=== PATIENT | female | born 1985 | race Caucasian/White ===

== ENCOUNTER → 2018-09-07 | Outpatient (CLI) | payer OTHER ==
[~2018-09-07] MED LIST: GADOBUTROL 7.5 MMOL/7.5 ML VIAL INT ART ONE; IOHEXOL 300 MG/ML 50 ML VIAL. INT ART ONE; LIDOCAINE 1% Multi-Dose 20 ML VIAL. ID ONE
--- NOTE | 2018-09-08 08:46 | KCIC ---
EXAM: MR right elbow arthrogram INDICATION: Lateral epicondylitis, radial tunnel syndrome. TECHNIQUE: Fluoroscopic guided arthrogram was performed prior to MRI. A mixture of dilute gadolinium with local anesthetic was injected. Please see corresponding report for further details. Multiplanar, multisequence imaging of the elbow was performed. FINDINGS: Ligaments: Ulnar collateral ligament: The anterior band of the ulnar collateral ligament is intact. Radial collateral ligament: Increased signal identified in the radial collateral ligament probably due to the radial collateral ligament. Lateral ulnar collateral ligament: Intact. Other ligaments and capsule: Intact. Muscles: Flexor and extensor origins are intact. There is probable mild increased T2 signal identified in the lateral epicondyle region. No signal abnormality in the muscles. Cartilage: No osteochondral defects. Bone: No fractures identified. No loose bodies present. Soft tissue : Within normal limits. No abnormality of the neurovascular structures. IMPRESSION: 1. There is increased signal identified in the region of the radial collateral ligament at its humeral attachment, underlying injury or tear is not completely excluded. Examination limited due to motion artifact. 2. Mild increased T2 signal identified at the lateral epicondyle region could be lateral epicondylitis however evaluation is limited secondary to injection. Electronically signed by: Manuel Willson MD (09/08/2018 8:42 AM) [id number]
--- NOTE | 2018-09-08 12:06 | KCIC ---
EXAM: FLUOROSCOPY GUIDED ELBOW ARTHROGRAM History: Elbow pain COMPARISON: None available TECHNIQUE: Consent: A written, informed consent was obtained from the patient prior to the procedure. Appropriate time out procedures were performed. The skin was prepped and draped in the usual fashion under aseptic precautions. Dilute 1% lidocaine was used for local anesthesia. Under fluoroscopic guidance a 25 gauge needle was used to access the elbow joint. A 5 cc mixture. 2.5 mL of lidocaine, 2.5 mL of Omnipaque 300, 5 mL of saline and 0.05 ml of gadolinium was injected into the elbow joint. The patient was transferred to the MRI suite. 29 seconds of total fluoroscopy time was utilized. Total fluoroscopic images 1. No immediate complications. IMPRESSION: Technically successful right elbow arthrogram. Electronically signed by: Manuel Willson MD (09/08/2018 12:03 PM) [id number]
== END | disposition home or self-care (01) ==
LOC: KCIC 13:09
PROVIDERS: ATTEND Orthopaedic Surgery
DX: M77.11 Lateral epicondylitis, right elbow (principal); G56.31 Lesion of radial nerve, right upper limb; Z88.1 Allergy status to other antibiotic agents; Z98.890 Other specified postprocedural states
CPT/HCPCS: 24220; 73085; 73222; A9585; Q9967